=== PATIENT | female | born 2000 | race Hispanic/Latino ===

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

== ENCOUNTER 2019-02-19 08:40 | Day surgery (SDC) | payer OTHER ==
--- OUTSIDE RECORDS SUMMARY | 2019-02-19 08:43 | XMS REPORT | Summary of Care ---
:2000 Author Organization [facility] Address [address] [place] [id number] Care Team Providers Name Role Phone Dwight Helton Primary Care Provider Reason for Visit Reason Comments Abdominal Pain x1 week worsening over last 2 days Encounter Details Date Type Department Care Team Description 11/11/2018 Nurse Visit [facility] Unknown, Attending Lower abdominal pain Urgent Care Nurse, [facility] (Primary Dx) [address] [place] [id number] Allergies No Known Allergiesdocumented as of this encounter (statuses as of 11/11/2018) Medications No known medicationsdocumented as of this encounter (statuses as of 11/11/2018) Active Problems Not on filedocumented as of this encounter (statuses as of 11/11/2018) Social History Tobacco Use Types Packs/Day Years Used Date Never Smoker Smokeless Tobacco: Never Used Sex Assigned at Date Recorded Not on file Job Start Date Occupation Industry Not on file Not on file Not on file Travel History Travel Start Travel End No recent travel history available. documented as of this encounter Last Filed Vital Signs Vital Sign Reading Time Taken Comments Blood Pressure 114/68 11/11/2018 8:37 PM CDT Pulse 99 11/11/2018 8:37 PM CDT Temperature 37.1 C (98.8 F) 11/11/2018 8:37 PM CDT Respiratory Rate 18 11/11/2018 8:37 PM CDT Oxygen Saturation 98% 11/11/2018 8:37 PM CDT Inhaled Oxygen Concentration - - Weight 68.7 kg (151 lb 8 oz) 11/11/2018 8:37 PM CDT Height 160 cm (5' 3") 11/11/2018 8:37 PM CDT Body Mass Index 26.84 11/11/2018 8:37 PM CDT documented in this encounter Progress Notes Arlet Rodriguez RN - 11/11/2018 8:15 PM CDTcomplaining of abdominal pain. Patient reports x1 week and has worsened over the last two days, c/o pain 10/10 lower abd. Tenderness to palpation. Patient reports history of none BP 114/68 | Pulse 99 | Temp 37.1 C (98.8 F) (Oral) | Resp 18 | Ht 5' 3" (1.6 m) | Wt 151 lb8 oz (68.7 kg) | LMP 10/16/2018 | SpO2 98% | BMI 26.84 kg /m Patient AAOx4, ambulatory, eupneic, skin pink/warm/dry, no acute distress noted. Patient encouraged to seek emergency medical treatment at local emergency room for further evaluation. Case discussed with ISABEL Murillo who agrees with treatment plan recommendations. Patient verbalizes understanding and states she will be seen at [facility]. Ambulance transport by [facility] offered to patient but refused. Left via private vehicle Patient leaves urgent care @ 825pm en route to [facility] AAOx4, ambulatory, in no acute distress. documented in this encounter Plan of Treatment Health Maintenance Due Date Last Done Comments MENINGOCOCCAL B VACCINES (1 of 2 - 2008 Risk Bexsero 2-dose series) VARICELLA VACCINES (1 of 2 - 13+ 09/04/2011 2-dose series) HPV VACCINES (1 - Female 3-dose 2013 series) CHLAMYDIA SCREENING 2014 DTaP,Tdap,and Td Vaccines (1 - 2017 Tdap) INFLUENZA VACCINE (#1) 2018 MENINGOCOCCAL VACCINE Aged Out No longer eligible based on patient's age to complete this topic PNEUMOCOCCAL 0-64 YEARS COMBINED Aged Out No longer eligible based on SERIES patient's age to complete this topic documented as of this encounter Results Not on filedocumented in this encounter Visit Diagnoses Diagnosis Lower abdominal pain - Primary Abdominal pain, other specified site documented in this encounter documented as of this encounter
--- OUTSIDE RECORDS SUMMARY | 2019-02-19 08:43 | XMS REPORT ---
:2000 Author Organization [facility] Address [address] [place] [address] Care Team Providers Name Role Phone Unavailable Unavailable Unavailable Payers Payer Name Policy Type Policy Number Effective Date Expiration Date Problems This patient has no known problems. Allergies, Adverse Reactions, Alerts Allergy Allergy Status Severity Reaction(s) Onset Inactive Treating Comments Name Type Date Date Clinician No Known DA Active U 2016-06 Allergies -20 00:00:0 0 Medications This patient has no known medications. Results Test Description Test Time Test Comments Text Results Atomic Results Result Comments - US PELVIS COMPLETE 2019-02-12 14:07:00 Patient Name: ANGELA SANCHEZ Unit No: [id number] EXAMS: CPT CODE: [id number] US PELVIS COMPLETE 58631 PELVIC ULTRASOUND, 02/12/2019: COMPARISON: None CLINICAL HISTORY: PEL PAIN TECHNIQUE: Transabdominal and endovaginal scanning was performed. FINDINGS: The uterus measures 7.0 x 3.9 x 5.5 cm. The endometrial stripe measured 9 mm in thickness. There was a probable 0.7 x 0.3 x 0.5 cm polyp with a vascular stalk in the inferior endometrial region. No uterine fibroids were visualized. The right ovary measures 3.9 x 2.7 x 2.1 cm and contains a probable 1.3 x 0.5 x 1.7 cm partially collapsed cyst and/or follicle in the right ovary. Doppler flow is demonstrated in the right ovary. The left ovary measures 3.1 x 2.1 x 2.3 cm and appears normal. Doppler flow is demonstrated in the left ovary. Trace amount of free fluid is present. CONCLUSION: Findings are suspicious for small endometrial polyp. Please see above comments. Probable 1.7 cm partially collapsed right ovarian cyst. at 1407 Reported and signed by: Mariano rGiffin MD CC: Dwight Helton MD Technologist: Annmarie Moreno RDMS Probe: Trnscrbd D/ (5739) t.SDR.AJ13 Orig Print D/T: S: 02/12/2019 (2336) [facility] NAME: ANGELA SANCHEZ Radiology Department PHYS: Dwight Dugan [address] : 2000 AGE: 18 SEX: F [place] [address] LOC: JalenRAD PHONE #: [phone] EXAM DATE: 02/12/2019 STATUS: REG CLI FAX #: [phone] RAD NO: Page 1 Signed Report Patient Name: ANGELA SANCHEZ Unit No: [id number] EXAMS: CPT CODE: [id number] US PELVIS COMPLETE 31828 <Continued> [facility] NAME: ANGELA SANCHEZ Radiology Department PHYS: Dwight Dugan [address] : 2000 AGE: 18 SEX: F [place] [address] LOC: JalenRAD PHONE #: [phone] EXAM DATE: 02/12/2019 STATUS: REG CLI FAX #: [phone] RAD NO: Page 2 Signed Report - DUP AB/PEL/SC/LTD 2019-02-12 14:07:00 Patient Name: ANGELA SANCHEZ Unit No: [id number] EXAMS: CPT CODE: [id number] DUP AB/PEL/SC/LTD 13937 PELVIC ULTRASOUND, 02/12/2019: COMPARISON: None CLINICAL HISTORY: PEL PAIN TECHNIQUE: Transabdominal and endovaginal scanning was performed. FINDINGS: The uterus measures 7.0 x 3.9 x 5.5 cm. The endometrial stripe measured 9 mm in thickness. There was a probable 0.7 x 0.3 x 0.5 cm polyp with a vascular stalk in the inferior endometrial region. No uterine fibroids were visualized. The right ovary measures 3.9 x 2.7 x 2.1 cm and contains a probable 1.3 x 0.5 x 1.7 cm partially collapsed cyst and/or follicle in the right ovary. Doppler flow is demonstrated in the right ovary. The left ovary measures 3.1 x 2.1 x 2.3 cm and appears normal. Doppler flow is demonstrated in the left ovary. Trace amount of free fluid is present. CONCLUSION: Findings are suspicious for small endometrial polyp. Please see above comments. Probable 1.7 cm partially collapsed right ovarian cyst. at 1407 Reported and signed by: Mariano Griffin MD CC: Dwight Helton MD Technologist: Annmarie Moreno RDMS Probe: Trnscrbd D/ (3134) [email or web address].SDR.AJ13 Orig Print D/T: S: 02/12/2019 (3796) [facility] NAME: ANGELA SANCHEZ Radiology Department PHYS: Dwight Dugan [address] : 2000 AGE: 18 SEX: F [place] [address] LOC: Rubi.RAD PHONE #: [phone] EXAM DATE: 02/12/2019 STATUS: REG CLI FAX #: [phone] RAD NO: Page 1 Signed Report Patient Name: ANGELA SANCHEZ Unit No: [id number] EXAMS: CPT CODE: [id number] DUP AB/PEL/SC/LTD 35568 <Continued> [facility] NAME: ANGELA SANCHEZ Radiology Department PHYS: Dwight Dugan [address] : 2000 AGE: 18 SEX: F [place] [address] LOC: Rubi.RAD PHONE #: [phone] EXAM DATE: 02/12/2019 STATUS: REG CLI FAX #: [phone] RAD NO: Page 2 Signed Report - US TRANSVAGINAL W/PELVIS 2019-02-12 14:07:00 Patient Name: ANGELA SANCHEZ Unit No: [id number] EXAMS: CPT CODE: [id number] US TRANSVAGINAL W/PELVIS 70387 PELVIC ULTRASOUND, 02/12/2019: COMPARISON: None CLINICAL HISTORY: PEL PAIN TECHNIQUE: Transabdominal and endovaginal scanning was performed. FINDINGS: The uterus measures 7.0 x 3.9 x 5.5 cm. The endometrial stripe measured 9 mm in thickness. There was a probable 0.7 x 0.3 x 0.5 cm polyp with a vascular stalk in the inferior endometrial region. No uterine fibroids were visualized. The right ovary measures 3.9 x 2.7 x 2.1 cm and contains a probable 1.3 x 0.5 x 1.7 cm partially collapsed cyst and/or follicle in the right ovary. Doppler flow is demonstrated in the right ovary. The left ovary measures 3.1 x 2.1 x 2.3 cm and appears normal. Doppler flow is demonstrated in the left ovary. Trace amount of free fluid is present. CONCLUSION: Findings are suspicious for small endometrial polyp. Please see above comments. Probable 1.7 cm partially collapsed right ovarian cyst. at 1407 Reported and signed by: Mariano Griffin MD CC: Dwight Helton MD Technologist: Annmarie Moreno RDMS Probe: [id number] Trnscrbd D/ (2327) [id number] Orig Print D/T: S: 02/12/2019 (3435) [facility] NAME: ANGELA SANCHEZ Radiology Department PHYS: Dwight Dugan [address] : 2000 AGE: 18 SEX: F [place], [place] [address] LOC: Rubi.RAD PHONE #: [phone] EXAM DATE: 02/12/2019 STATUS: REG CLI FAX #: [phone] RAD NO: Page 1 Signed Report Patient Name: ANGELA SANCHEZ Unit No: [id number] EXAMS: CPT CODE: [id number] US TRANSVAGINAL W/PELVIS 85023 <Continued> [facility] NAME: ANGELA SANCHEZ Radiology Department PHYS: SANTHOSH HeltonDwight Derick [address] : 2000 AGE: 18 SEX: F [place], [place] [address] LOC: JalenRAD PHONE #: [phone] EXAM DATE: 02/12/2019 STATUS: REG CLI FAX #: [phone] RAD NO: Page 2 Signed Report FLUID,OTHER 2018-11-15 20:20:00 RUN DATE: 11/15/18 [facility] PAGE 1 RUN TIME: 2021 Specimen Inquiry RUN USER: INTERFACE PATIENT: ANGELA SANCHEZ LOC: JalenMSU U #: [id number] AGE/SX: 18/F ROOM: [facility] RE11/12/18REG DR: Irvin Simmons MD : [birth year] BED: A DIS: 11/13/18 STATUS: DIS IN TLOC: SPEC #: [id number] RECD: 11/12/18 STATUS: MINNA VALENTIN #: [id number] GABRIEL: 11/12/18- SUBM DR: Irvin Simmons MD ENTERED: 11/13/18 SP TYPE: EFE MURRAY DR: ORDERED: CYTOLOGY/SACCOM PROCEDURES: CYTOLOGY/SACCOM (Incomplete) TISSUES: OVARIAN/PARAOVARIAN CYST FLUID - CYST FLUID CLINICAL HISTORY 18 year old, ruptured hemorrhagic cyst (wpd) FINAL DIAGNOSIS Designated "cyst fluid", aspiration (cytospins and cell block): - no malignant cells identified, blood only CPT code(s): 57219, 92179 isisg/bernice dt: 11/14/18 GROSS DESCRIPTION The specimen is received in a container, labeled with the patient's name and designated "cyst fluid" and consists of 25 cc brown fluid. Two cytospins and one cell block were prepared. hj/wpd 11/13/18 @ 1344 MICROSCOPIC DESCRIPTION The specimen consists of blood only. pkg/kr dt: 11/14/18 COMMENT: The corresponding surgical pathology [id number] showed: Endometrium, curettage: - benign secretory endometrium [facility] 11/14/18 Signed Kristine Tran 11/15/182019 END OF REPORT OPIATE CONFIRMATION GCMS 2018-11-15 11:13:00 Test Item Value Reference Range Comments DRUG CONFIRMATION BY GC/MS (test POSITIVE NEGATIVE Drug(s) Identified: hydromorphone code=DRUGCON) amount 529 ng/mL morphine 1421 ng/ml GC/MS Cutoff: 0. ENDOMETRIUM,[id number] 12:30:00 RUN DATE: 12/05/18 [facility] PAGE 1 RUN TIME: 1043 Specimen Inquiry RUN USER: INTERFACE PATIENT: ANGELA SANCHEZ [facility] #: [id number] AGE/SX: 18/F ROOM: [facility] RE11/12/18REG DR: Irvin Simmons MD : [birth year] BED: A DIS: 11/13/18 STATUS: DIS IN TLOC: --------- --- SPEC #: :[id number] RECD: 11/12/18 STATUS: MINNA VALENTIN #: [id number] GABRIEL: 11/12/18- SUBM DR: Irvin Simmons MD ENTERED: 11/13/18 SP TYPE: ENDOMETBX TERRI DR: ORDERED: LEVEL IV CODES: [id number] - ENDOMETRIUM, NO PROCEDURES: LEVEL IV (Incomplete) TISSUES: ENDOMETRIUM, NOS - ENDOMETRIAL CURETTINGS CLINICAL HISTORY 18 year old, rupturedhemorrhagic cyst (kr) FINAL DIAGNOSIS Endometrium , curettage: - benign secretory endometrium CPT code(s): 26109 [facility] 11/14/18 GROSS DESCRIPTION ANATOMIC SOURCEOF TISSUE (per Requisition): Endometrial curettings The specimen is received in a formalin-filled container, labeled with the patient's name and designated "endometrial curettings". The specimen consists of a 1.0 x 0.7 x 0.2 cm aggregate of multiple pak-pink to pak-red soft tissues admixed with blood- tinged mucoid material, submitted in toto as A1. ruben 11/13/18 @ 0957 -- Signed Charis English MD 11/14/18 1230 END OF REPORT CBC W/AUTO [id number] 04:47:00 Test Item Value Reference Range Comments WHITE BLOOD CELL (test code=WBC) 6.6 K/mm3 6.6-12.1 RED BLOOD CELL (test code=RBC) 3.72 M/mm3 3.45-5.01 HEMOGLOBIN (test code=HGB) 10.3 g/dL 10.7-13.9 HEMATOCRIT (test code=HCT) 31.2 % 32.1-42.1 MEAN CELL VOLUME (test code=MCV) 84 fL 84.1-94.8 MEAN CELL HGB (test code=MCH) 27.7 pg 27-35 MEAN CELL HGB CONCETRATION (test code=MCHC) 33.0 gm/dL 32.2-34.1 RED CELL DISTRIBUTION WIDTH (test code=RDW) 13.9 % 12.4-16.5 PLATELET COUNT (test code=PLT) 162 K/mm3 133-385 IMMATURE PLATELET FRACTION (test code=IPF) 0.0 % 0.0-10.8 MEAN PLATELET VOLUME (test code=MPV) 11.9 fl 9.1-12.7 NEUTROPHIL % (test code=NT%) 71.4 % 56.5-79.4 LYMPHOCYTE % (test code=LY%) 18.3 % 14.3-34.3 MONOCYTE % (test code=MO%) 9.8 % 5.1-10.4 EOSINOPHIL % (test code=EO%) 0.0 % 0.1-3.0 BASOPHIL % (test code=BA%) 0.2 % 0.1-1.0 NEUTROPHIL # (test code=NT#) 4.7 K/mm3 LYMPHOCYTE # (test code=LY#) 1.2 K/mm3 MONOCYTE # (test code=MO#) 0.7 K/mm3 EOSINOPHIL # (test code=EO#) 0 K/mm3 BASOPHIL # (test code=BA#) 0.0 K/mm3 RBC MORPHOLOGY REQUIRED (test code=RBCM) NORMAL NORMAL PLATELET MORPHOLOGY REQUIRED (test code=PLTMR) NORMAL NORMAL DRUGS OF ABUSE [id number] 10:27:00 Test Item Value Reference Range Comments UR COCAINE (test code=COCAU) NEGATIVE NEGATIVE DETECTION CUT OFF: 150 ng/mL UR CANNABINOIDS (test code=CANU) NEGATIVE NEGATIVE DETECTION CUT OFF: 50 ng/ mL UR AMPHETAMINE (test code=AMPHU) NEGATIVE NEGATIVE DETECTION CUT OFF: 500 ng/mL UR BARBITURATE QUAL (test NEGATIVE NEGATIVE DETECTION CUT OFF: 200 code=BARBQLU) ng/mL UR BENZODIAZEPINE (test NEGATIVE NEGATIVE DETECTION CUT OFF: 150 code=BENZU) ng/mL UR OPIATES QUAL (test POSITIVE NEGATIVE RESULTS CALLED TO code=OPIAQLU) NILSREAD BACK & CONFIRMED? Y.BY YIFAN 11/12/18 1027. DETECTION CUT OFF: 100 ng/mL UR PHENCYCLIDINE (PCP) (test NEGATIVE NEGATIVE DETECTION CUT OFF: 25 ng/mL code=PHENCU) UR HCG [id number] 10:01:00 Test Item Value Reference Range Comments UR HCG QUAL (test NEGATIVE 1. Very dilute urine specimens, as code=HCGQLU) indicated by a lowspecific gravity, may not contain claims customer service representative levels ofhCG. 2. False negative results may occur when the levels of hCGare below the sensitivity level of the test. If is still suspected, a first morningurine specimen should be collected 48 hours later andtested. AB [id number] 08:15:00 Test Item Value Reference Range Comments AB TREPONEMA (test code=TREPAB) NONREACTIVE NONREACTIVE AB HIV 1 08:15:00 Test Item Value Reference Range Comments AB HIV 1 2 (test NONREACTIVE NONREACTIVE Done by [employer] 4th code=BDM33WQ) Gen HIV Ag/Ab Combo Screen AB [id number] 07:46:00 Test Item Value Reference Range Comments AB TREPONEMA (test code=TREPAB) NONREACTIVE NONREACTIVE AB HIV 1 07:46:00 Test Item Value Reference Range Comments AB HIV 1 2 (test code=LHW54EW) NONREACTIVE HCG [id number] 07:21:00 Test Item Value Reference Range Comments HCG SERUM (test code=HCG) <1 INTERPRETATION:VALUES BETWEEN 15-20 milliInternational units/mL NEED TO BERETESTED WITHIN 48 HOURS. All units for these ranges are in milliInternationalunits/mL0-1 WK AFTER CONCEPTION 0-50 1-2 WKS AFTER CONCEPTION 40-3002-3 WKS AFTER CONCEPTION 100-1,0003-4 WKS AFTER CONCEPTION 500-6,0001-2 MONTHS AFTER CONCEPTION 5,000-200,0002-3 MONTHS AFTER CONCEPTION 10,000-100,0002ND TRIMESTER 3,000-50,0003RD TRIMESTER 1,000-50,000 SPECIMENS WITH AN HCG LEVEL FROM 0-6 milliInternationalunits/mL SHOULD BE CONSIDERED NEGATIVE MARTI PRATER [facility] W/AUTO [id number] 06:56:00 Test Item Value Reference Range Comments WHITE BLOOD CELL (test code=WBC) 6.0 K/mm3 6.6-12.1 RED BLOOD CELL (test code=RBC) 3.90 M/mm3 3.45-5.01 HEMOGLOBIN (test code=HGB) 10.8 g/dL 10.7-13.9 HEMATOCRIT (test code=HCT) 33.3 % 32.1-42.1 MEAN CELL VOLUME (test code=MCV) 85 fL 84.1-94.8 MEAN CELL HGB (test code=MCH) 27.7 pg 27-35 MEAN CELL HGB CONCETRATION (test code=MCHC) 32.4 gm/dL 32.2-34.1 RED CELL DISTRIBUTION WIDTH (test code=RDW) 14.1 % 12.4-16.5 PLATELET COUNT (test code=PLT) 147 K/mm3 133-385 IMMATURE PLATELET FRACTION (test code=IPF) 0.0 % 0.0-10.8 MEAN PLATELET VOLUME (test code=MPV) 12.1 fl 9.1-12.7 NEUTROPHIL % (test code=NT%) 76.9 % 56.5-79.4 LYMPHOCYTE % (test code=LY%) 13.9 % 14.3-34.3 MONOCYTE % (test code=MO%) 7.7 % 5.1-10.4 EOSINOPHIL % (test code=EO%) 0.7 % 0.1-3.0 BASOPHIL % (test code=BA%) 0.5 % 0.1-1.0 NEUTROPHIL # (test code=NT#) 4.6 K/mm3 LYMPHOCYTE # (test code=LY#) 0.8 K/mm3 MONOCYTE # (test code=MO#) 0.5 K/mm3 EOSINOPHIL # (test code=EO#) 0.04 K/mm3 BASOPHIL # (test code=BA#) 0.0 K/mm3 RBC MORPHOLOGY REQUIRED (test code=RBCM) NORMAL NORMAL PLATELET MORPHOLOGY REQUIRED (test code=PLTMR) NORMAL NORMAL INFLUENZA A B [id number] 06:35:00 Test Item Value Reference Range Comments INFLUENZA A PCR (test code=FLUAPCR) NEGATIVE NEGATIVE INFLUENZA B PCR (test code=FLUBPCR) NEGATIVE NEGATIVE
[2019-02-19 08:52] LABS: Absolute Lymphocytes (CBC) 1.3 K/uL (0.7-4.9); Basophils % 0.7 % (0-1.3); Hematocrit 38.6 % (36.0-45.0); Lymphocytes % 26.3 % (15.3-44.8); MPV 9.5 fL (7.6-11.3); RBC Red Blood Cell Count 4.74 M/uL (3.86-4.86)
[2019-02-19 09:05] LABS: Albumin 4.2 g/dL (3.4-5.0); Bilirubin Direct 0.1 mg/dL (0-0.2); Bilirubin Total 0.5 mg/dL (0.2-1.0); Protein, Total 8.6 g/dL (6.4-8.2)
[2019-02-19] MEDS ORDERED: CEFOXITIN/SWI 1gm 1 GM/10 ML SYR ONE (09:08)
[2019-02-19] MEDS ORDERED: Ringers Lactate 1,000 ML IV ONE (09:08)
[2019-02-19 09:21] LABS: BUN Blood Urea Nitrogen 13 mg/dL (7-18); Bicarbonate 29 mmol/L (21-32); Glucose Level 88 mg/dL (74-106); Potassium 4.2 mmol/L (3.5-5.1); Sodium Level 140 mmol/L (136-145)
[2019-02-19] MEDS ORDERED: MIDAZOLAM HCL 2 MG/2 ML INJ ONE ×2 (09:32→09:45)
[2019-02-19] MEDS ORDERED: FENTANYL CITR 100 MCG/2 ML ONE ×3 (09:32→10:25)
[2019-02-19] MEDS ORDERED: LIDOCAINE 2% MPF 5 ML VIAL ONE (09:32)
[2019-02-19] MEDS ORDERED: propofoL 200 MG/20 ML VIAL IV ONE ×2 (09:32→09:44)
[2019-02-19] MEDS ORDERED: ROCURONIUM 50 MG/5 ML VIAL IV ONE ×2 (09:32→09:45)
[2019-02-19] MEDS ORDERED: LIDOCAINE 1% MPF 5 ML VIAL ONE (09:44)
[2019-02-19] MEDS ORDERED: GLYCOPYRROLATE 0.2 MG/ML SYR ONE (10:22)
[2019-02-19] MEDS ORDERED: KETOROLAC 30 MG/ML INJ ONE (10:22)
[2019-02-19] MEDS ORDERED: ONDANSETRON 4 MG/2 ML VIAL ONE ×2 (10:23→11:05)
[2019-02-19] MEDS ORDERED: NEOSTIGMINE 1 MG/ML -10 ML VIAL ONE (10:23)
--- NOTE | 2019-02-19 10:48 | P.BOP ---
Preoperative diagnosis: RLQ abd pain, appendiceal mass Postoperative diagnosis: Appendicitis Primary procedure: Diagnostic laparoscopy, Laparoscopic appendectomy Outbound Supervisor: EMMA HOSKINS (SURVEYOR GEOPHYSICAL PROSPECTING) Estimated blood loss: <10cc Specimen: andres Findings: see dictation Anesthesia: General Complications: None Transferred to: Recovery Room Condition: Good
[2019-02-19] MEDS ORDERED: MEPERIDINE HCL 25 MG/0.5 ML ONE (10:58)
[2019-02-19] MEDS ORDERED: HYDROMORPHONE HCL 1 MG/ML INJ ONE (11:04)
[2019-02-19] MEDS: HYDROMORPHONE HCL 1 MG/ML INJ ONE ×2 (11:08→11:20)
[2019-02-19] MEDS ORDERED: DIPHENHYDRAMINE 50 MG/ML VIAL ONE (11:37)
[2019-02-19 13:47] VITALS: BP 114/60; TEMP 97; O2SAT 99
--- NOTE | 2019-02-19 22:27 | OP ---
Date of Procedure: 02/19/2019 Surgeon: Beau Prabhakar MD Sorting Cows Worker: PABLO Woods. Preoperative Diagnoses: Right lower quadrant persistent abdominal pain, appendiceal mass/abnormality on imaging. Postoperative Diagnoses: Right lower quadrant persistent abdominal pain, appendiceal mass/abnormalit y on imaging, appendicitis. Procedure: Diagnostic laparoscopy, laparoscopic appendectomy. Specimen: Appendix. Findings: The appendix looks asymmetrical in shape and color with some erythematous areas. The main appendix is bigger than the distal appendix, but is also on even in shape in multiple places of the appendix. The base of the appendix seems to be spared. The appendix looks tangled with the fallopia n tube, but there is no adhesions there just all together that make sense based on the CAT scan findi ngs that they are trying to rule out adnexal versus appendiceal mass. Then, this case, the right ova ry and left ovary shows no masses, fallopian tube with no masses, fimbriae with no masses. The appen dalton is seen right over the fimbriae and underneath the ovary and have that abnormalities mention befo re with apparently some inflammation of the appendix itself, mild. The ascending, transverse, descen ding colon, we did not see any extraluminal masses or any inflammation, at least extraluminal. Liver s with no masses seen at least out of the parenchyma and a stomach is soft and compressible. The sma ll bowel with no masses seen. Inguinal region with no masses seen. A uterus with no masses seen. C ul-de-sac with no masses seen. Indications: This is a case of a female who comes to us with persistent right upper quadrant pain. CAT scan shows some abnormalities, and what they believe it is an appendix, probably a mass, so diagn oses laparoscopy, laparoscopic possible open appendectomy fully explained to the patient, which inclu de, but are not limited to infection, bleeding, damage to adjacent structures, anesthesia complicatio n, NH, and even . She also understands this may not relieve any symptoms. She might need more than one surgical intervention. She understood, signed a consent. Description Of Procedure: The patient was brought to the operating room, placed in supine position. Anesthesia was without complication. Time-out was called. Abdomen was prepped and draped in usual sterile fashion. Local anesthesia was applied followed by sharp incision of the skin. In the infrau mbilical region, incision was carried down to fascia, which was opened under direct vision. Peritone um was encountered, opened under direct vision. Vicryl #1 placed inside of the fascia. Yanely troca r was carefully introduced. No bleeding was obtained. We initially did the diagnostic laparoscopy f irst without putting the other trocars. Then, we put a 5 mm trocar in the suprapubic and left lower quadrant under direct visualization. This allowed me to even better visualize the abdomen with findi ngs that I described above. We created a window in the base of the appendix, transected that with an Endo PAULINE 45 mm 3.5 and the mesoappendix with an Endo PAULINE 45 mm 2.5. Further hemostasis was obtained with the help of hemoclips. Appendix removed from abdominal cavity using an EndoCatch through the u mbilical incision. The area was inspected once again. No bowel leak. No bleeding. At that moment, I proceeded to remove the trocars under direct vision. Deflated the pneumoperitoneum. Closed the f ascia with #1 Vicryl, irrigated subcutaneous tissue, closed that with 3-0 chromic, and skin with 3-0 chromic in a subcuticular fashion. Sponge count and instrument counts were correct. Patient tolerat ed the procedure well. Patient was sent to recovery in stable condition. Diagnoses: Right lower quadrant abdominal pain, appendicitis, appendiceal mass. Disposition: Home. Activity: As tolerated. No heavy lifting. Followup: Follow up in my office in 1 week. Call for appointment [phone]. Keep area dry for 48 ho urs, then may shower. Keep Steri-Strips intact. Medications: Tylenol No. 3 q.4 hours p.r.n. pain and Cipro 500 p.o. q.12. HOA/ALAN Voice ID: [id number] Report ID: [id number]
== END 2019-02-19 13:29 | disposition home or self-care (01) ==
LOC: OR 08:40
PROVIDERS: ATTEND Surgery
PROC: 0DTJ4ZZ Resection of Appendix, Percutaneous Endoscopic Approach (ICD-10-PCS; principal; 2019-02-19 12:30)
DX: K37 Unspecified appendicitis (principal)
CPT/HCPCS: 85025; 80048; 36415; 82150; 84703; 80076; 88304; 44970; J2704 ×2; J2710; J1200; J2250 ×2; J3010 ×3; J2175; J1170 ×2; J7120; J2405 ×2